=== PATIENT | male | born 1990 | race Caucasian/White ===

== ENCOUNTER 2019-03-13 02:16 | Emergency (ER) | payer MEDICAID ==
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
[2019-03-13 04:23] VITALS: BP 143/87
== END 2019-03-13 04:22 | disposition home or self-care (01) ==
DX: S09.93XA Unspecified injury of face, initial encounter (principal); Y04.8XXA Assault by other bodily force, initial encounter; Y92.511 Restaurant or cafe as the place of occurrence of the external cause